=== PATIENT | male | born 1980 | race Caucasian/White ===

== ENCOUNTER 2016-08-20 00:21 | Emergency (ER) | payer SELFPAY ==
[2016-08-20 00:27] VITALS: BP 117/90; PULSE 90; O2SAT 97
[2016-08-20] MEDS ORDERED: DELTASONE 20 MG PO ONE (00:41)
[2016-08-20] MEDS ORDERED: BENADRYL 50 MG/ML IM ONE (00:41)
--- NOTE | 2016-08-20 00:47 | ERPHSYRPT ---
- History of Present Illness Time Seen by Provider: 08/20/16 00:35 Exam Limitations: clinical condition Patient Subjective Stated Complaint: STATES THAT HE HAD SOME POISON DIONY EXPOSURES SINCE YESTERDAY AND HAS BEEN ITCHING ON THE ARMS, LEGS, BUTTOCKS SINCE THAT TIME Triage Nursing Assessment: AMBULATORY TO TREATMENT AREA - STEADY GAIT - MOVES ALL EXTREMITIES WITH EQUAL STRENGTH. ALERT/ORIENTED - PLEASANT AFFECT. SKIN FLUSHED/HOT/DRY - FINE RASH ON THE ARMS. RESPS EASY - NON-LABORED Physician History: PATIENT WITH HISTORY OF POISON DIONY, WAS PULLING BRANCHES OF TREES AND DEVELOPED GENERALIZED ITCHING WITH RASH OVER UPPER AND LOWER EXTREMITIES, AND TRUNK. DENIES DIFFICULTY BREATHING OR SWALLOWING. Timing/Duration: today Quality: burning, itchy Severity: moderate Location: torso, extremities, generalized Possible Causes: poison diony Modifying Factors: Improves With: calamine lotion Associated Symptoms: change in skin texture Allergies/Adverse Reactions: Sulfa (Sulfonamide Antibiotics) Allergy (Verified 08/20/16 00:23) Hx Tetanus, Diphtheria Vaccination/Date Given: Yes Hx Influenza Vaccination/Date Given: No Hx Pneumococcal Vaccination/Date Given: No Immunizations Up to Date: Yes - Review of Systems Constitutional: No Fever, No Chills Eyes: No Symptoms Ears, Nose, & Throat: No Symptoms Respiratory: No Symptoms, No Cough, No Dyspnea Cardiac: No Symptoms, No Chest Pain, No Edema, No Syncope Abdominal/Gastrointestinal: No Symptoms, No Abdominal Pain, No Nausea, No Vomiting, No Diarrhea Genitourinary Symptoms: No Symptoms, No Dysuria Musculoskeletal: No Symptoms, No Back Pain, No Neck Pain Skin: Skin Lesions, No Rash Neurological: No Dizziness, No Focal Weakness, No Sensory Changes Psychological: No Symptoms Endocrine: No Symptoms All Other Systems: Reviewed and Negative - Past Medical History Pertinent Past Medical History: No - Past Surgical History Past Surgical History: Yes Other Surgical History: TONSILLECTOMY - Social History Smoking Status: Current every day smoker Exposure to second hand smoke: No Drug Use: none Patient Lives Alone: No - Nursing Vital Signs Nursing Vital Signs: Initial Vital Signs Temperature 99.0 F Temperature Source Oral Pulse Rate 90 Respiratory Rate 16 Blood Pressure [Right Arm] 117/90 Pain Intensity 3 - Physical Exam General Appearance: no apparent distress, alert Eye Exam: PERRL/EOMI, eyes nml inspection Ears, Nose, Throat Exam: normal ENT inspection, pharynx normal, moist mucous membranes Neck Exam: normal inspection, non-tender, supple, full range of motion Respiratory Exam: normal breath sounds, lungs clear, No respiratory distress Cardiovascular Exam: regular rate/rhythm, normal heart sounds Gastrointestinal/Abdomen Exam: soft, mass, No tenderness Back Exam: normal inspection, normal range of motion, No CVA tenderness, No vertebral tenderness Extremity Exam: normal inspection, normal range of motion Neurologic Exam: alert, oriented x 3, cooperative, normal mood/affect, sensation nml, No motor deficits Skin Exam: normal color, warm, dry, other (ERYTHEMATOUS PATCHY LESIONS) SpO2 Interpretation: normal SpO2: 97 Oxygen Delivery: Room Air - Progress Progress: improved Progress Note: 08/20/16 00:55 PATIENT ADMINISTERED BENADRYL 50MG IM, PREDNISONE 60MG ORALLY Counseled pt/family regarding: diagnosis, need for follow-up - Departure Time of Disposition: 01:05 Departure Disposition: Home Clinical Impression: CONTACT DERMATITIS Condition: Stable Critical Care Time: No Additional Instructions: TAKE OVER THE COUNTER BENADRYL 50MG EVERY 4 HOURS FOR ITCHING NEEDED. PREDNISONE 50MG DAILY FOR 5 DAYS. CONSULT YOUR FAMILY PHYSICIAN FOR FOLLOWUP. Prescriptions: Prednisone 50 mg PO DAILY #5 tablet
[2016-08-20] MEDS ORDERED: BENADRYL 50 MG/ML ONE (00:48)
[2016-08-20] MEDS ORDERED: DELTASONE 20 MG ONE (00:48)
== END 2016-08-20 01:15 | disposition home or self-care (01) ==
LOC: ED 00:21
DX: L25.9 Unspecified contact dermatitis, unspecified cause (principal)
CPT/HCPCS: 96372; 99282; 99284; A9270; J1200